=== PATIENT | male | born 1970 | race American Indian/Alaskan Native ===

== ENCOUNTER 2019-03-18 | Emergency (ER) | payer OTHER ==
[2019-03-18] MEDS ORDERED: ASPIRIN PO ONE (00:19)
[2019-03-18] MEDS ORDERED: TYLENOL PO ONE ×2 (00:20→02:31)
[2019-03-18 01:06] LABS: Basophils % (Auto) 0.5 % (0.0-1.8); Eosinophils # (Auto) 0.1 K/mm3 (0.0-0.4); Eosinophils % (Auto) 0.7 % (0.0-4.3); Hematocrit 46.4 % (35.5-45.6); Hemoglobin 15.4 gm/dl (11.8-15.2); Lymphocytes # (Auto) 2.6 K/mm3 (1.2-5.4); Lymphocytes % (Auto) 32.7 % (13.4-35.0); Mean Corpuscular HGB Conc 33 % (32-34); Mean Corpuscular Volume 79 fl (84-94); Monocytes # (Auto) 0.6 K/mm3 (0.0-0.8); Monocytes % (Auto) 7.8 % (0.0-7.3); Platelet Count 288 K/mm3 (140-440); Red Blood Count 5.85 M/mm3 (3.65-5.03); Red Cell Distribution Width 15.1 % (13.2-15.2)
[2019-03-18 01:23] LABS: BUN/Creatinine Ratio 8; Blood Urea Nitrogen 8 mg/dL (9-20); Calcium 9.4 mg/dL (8.4-10.2); Hemolysis Index 10
[2019-03-18] MEDS ORDERED: NITROSTAT SL ONE (01:32)
--- NOTE | 2019-03-18 01:37 | Emergency Department Report ---
ED Chest Pain HPI - General Chief Complaint: Chest Pain Stated Complaint: SSOB CHEST PAIN HEADACHE Time Seen by Provider: 03/18/19 01:29 Source: patient Mode of arrival: Ambulatory Limitations: No Limitations - History of Present Illness Initial Comments: Patient is 48 years old male with history of hypertension and diabetes. Patient presented to the ER complaining of left-sided chest pain starting this evening. Patient described his pain as a burning sensation. Patient denied any radiation. Patient also denied any shortness of breath, fever or chills. Patient found to have a blood pressure of 168/106. MD Complaint: chest pain -: This evening Onset: during rest Pain Location: left chest Severity scale (0 -10): 9 Quality: other (burning) Consistency: intermittent - Related Data Allergies Allergy/AdvReac Type Severity Reaction Status Date / Time No Known Allergies Allergy Verified 03/18/19 00:17 Heart Score - HEART Score History: Slightly suspicious EKG: Non-specific Age: 45-65 Risk factors: 1-2 risk factors Troponin: < normal limit HEART Score: 3 - Critical Actions Critical Actions: 0-3 pts:0.9-1.7%risk of adverse cardiac event.Candidate for discharge ED Review of Systems ROS: Stated complaint: SSOB CHEST PAIN HEADACHE Other details as noted in HPI Comment: All other systems reviewed and negative Constitutional: denies: chills, fever Respiratory: denies: shortness of breath, SOB with exertion Cardiovascular: chest pain Gastrointestinal: denies: abdominal pain, nausea, vomiting Musculoskeletal: denies: back pain Neurological: denies: headache, weakness ED Past Medical Hx - Past Medical History Previous Medical History?: Yes Hx Hypertension: Yes Hx Diabetes: Yes - Surgical History Past Surgical History?: No - Social History Smoking Status: Current Every Day Smoker Substance Use Type: None ED Physical Exam - General Limitations: No Limitations General appearance: alert, in no apparent distress - Head Head exam: Present: atraumatic, normocephalic, normal inspection - Eye Eye exam: Present: normal appearance, PERRL - ENT ENT exam: Present: normal exam, normal orophraynx, mucous membranes moist - Neck Neck exam: Present: normal inspection, full ROM. Absent: tenderness, meningismus - Respiratory Respiratory exam: Present: normal lung sounds bilaterally - Cardiovascular Cardiovascular Exam: Present: regular rate, normal rhythm, normal heart sounds - GI/Abdominal GI/Abdominal exam: Present: soft, normal bowel sounds. Absent: distended, tenderness, guarding, rebound, rigid, organomegaly, mass, bruit, pulsatile mass, hernia - Extremities Exam Extremities exam: Present: normal inspection, full ROM, normal capillary refill - Back Exam Back exam: Present: normal inspection, full ROM. Absent: CVA tenderness (R), CVA tenderness (L) - Neurological Exam Neurological exam: Present: alert, oriented X3, CN II-XII intact - Psychiatric Psychiatric exam: Present: normal mood - Skin Skin exam: Present: warm, intact, normal color ED Course Vital Signs 03/18/19 03/18/19 03/18/19 00:05 01:47 03:46 Temperature 98.6 F Pulse Rate 106 H Respiratory 18 Rate Blood Pressure 142/106 145/105 Blood Pressure 159/109 [Right] O2 Sat by Pulse 98 Oximetry ED Medical Decision Making - Lab Data Result diagrams: 03/18/19 00:38 03/18/19 00:38 - EKG Data -: EKG Interpreted by Ri EKG shows normal: sinus rhythm Rate: normal - EKG Data Interpretation: no acute changes - Radiology Data Radiology results: report reviewed Chest x-ray is unremarkable. - Medical Decision Making Patient is 48 years old male with history of hypertension and diabetes. Patient presented to the ER complaining of left-sided chest pain starting this evening. Patient described his pain as a burning sensation. Patient denied any radiation. Patient also denied any shortness of breath, fever or chills. Patient found to have a blood pressure of 168/106. Patient's symptoms completely resolved. Blood pressure improved with nitroglycerin. EKG was no ST elevation or depression. Chest x-ray is negative for acute finding. 2 sets of troponin is negative. Patient strongly advised to follow-up with his primary care physician for outpatient cardiac workup including stress tests and further management. Advised to return to the ER if symptoms return. Critical care attestation.: If time is entered above; I have spent that time in minutes in the direct care of this critically ill patient, excluding procedure time. ED Disposition Clinical Impression: Chest pain, Malignant hypertension Disposition: - TO HOME OR SELFCARE Is pt being admited?: No Condition: Stable Instructions: Chest Pain (ED), Hypertension (ED) Referrals: [facility] [Other] - 3-5 Days
[2019-03-18] MEDS ORDERED: IBUPROFEN PO ONE (02:45)
[2019-03-18] MEDS ORDERED: IBUPROFEN ONE (02:46)
--- NOTE | 2019-03-18 02:51 | XRay Report ---
CHEST 1 VIEW 03/18/2019 12:30 AM INDICATION / CLINICAL INFORMATION: Chest Pain. COMPARISON: None available. FINDINGS: SUPPORT DEVICES: None. HEART / MEDIASTINUM: No significant abnormality. LUNGS / PLEURA: No significant pulmonary or pleural abnormality. No pneumothorax. ADDITIONAL FINDINGS: No significant additional findings. IMPRESSION: No acute findings. Signer Name: Ethan Rosa MD Signed: 03/18/2019 2:47 AM Workstation Name: [id number]
[2019-03-18 05:12] VITALS: BP 155/92
== END 2019-03-18 05:11 | disposition home or self-care (01) ==
LOC: ED
DX: I10 Essential (primary) hypertension (principal); R07.89 Other chest pain; E11.9 Type 2 diabetes mellitus without complications; F17.200 Nicotine dependence, unspecified, uncomplicated
CPT/HCPCS: 36415; 71045; 80048; 84484; 85025; 93005; 93010